=== PATIENT | male | born 1985 | race Caucasian/White ===

== ENCOUNTER 2016-04-01 10:22 | Emergency (ER) | payer BC, OTHER ==
[~2016-04-01] VITALS: Ht 170.2 cm; Wt 95.3 kg
[2016-04-01 10:58] LABS: Basophils # (auto) 0 uL; Basophils % (auto) 0.4 % (0.0-2.0); Eosinophils # (auto) 0.1 uL; Eosinophils % (auto) 1.5 % (0.0-7.0); Hemoglobin 16.5 g/dL (13.5-17.5); Lymphocytes # (auto) 2.1 uL; Lymphocytes % (auto) 33.3 % (10.0-50.0); Mean Corpuscular Hemoglobin 27.7 pg (28.0-32.0); Mean Corpuscular Hgb Conc. 33.5 g/dL (32.0-36.0); Mean Corpuscular Volume 82.6 fL (80.0-100.0); Mean Platelet Volume 8.3 fL (7.4-10.4); Monocytes # (auto) 0.6 uL; Monocytes % (auto) 8.7 % (0.0-12.0); Neutrophils # (auto) 3.6 uL; Neutrophils % (auto) 56.1 % (37.0-80.0); Platelet Count (auto) 286 10^3/uL (140-450); White Blood Cell 6.3 10^3/uL (4.4-10.8)
[2016-04-01 11:24] LABS: Albumin 3.8 g/dL (3.4-5.0); Alkaline Phosphatase 55 U/L (45-117); Anion Gap 6 (5-15); Aspartate Aminotransferase 20 U/L (15-37); BUN/Creatinine Ratio 11.6; Bilirubin, Total 0.9 mg/dL (0.2-1.0); Blood Urea Nitrogen 11 mg/dL (7-18); Calcium 8.7 mg/dL (8.5-10.1); Carbon Dioxide 27 mmol/L (21-32); Chloride 106 mmol/L (98-107); GFR African American 118 mL/min; GFR Non-African American 98 mL/min; Glucose 117 mg/dL (74-106); Magnesium 2.4 mg/dL (1.6-2.6); Potassium 3.8 mmol/L (3.5-5.1); Sodium 139 mmol/L (136-145)
[2016-04-01] MEDS ORDERED: cloNIDine HCL 0.1 MG TAB PO ONE (11:30)
[2016-04-01 11:38] VITALS: BP 141/108
== END 2016-04-01 12:32 | disposition home or self-care (01) ==
LOC: ER 10:32
DX: F41.9 Anxiety disorder, unspecified (principal); I16.0 Hypertensive urgency; R53.1 Weakness
CPT/HCPCS: 36415; 80053; 83735; 84484; 85025; 93005